=== PATIENT | male | born 1935 | race Caucasian/White ===

== ENCOUNTER 2018-04-29 12:22 | Emergency (ER) | payer MEDICARE, BC ==
[2018-04-29 13:18] LABS: ADD MAN DIFF? NO
[2018-04-29 13:23] LABS: BASOPHIL # 0.1 10^3/ul (0.0-0.1); BASOPHILS % 0.5 % (0.0-2.0); EOSINOPHILS # 0.3 10^3/ul (0.0-0.5); EOSINOPHILS % 2.4 % (0.0-7.0); HEMATOCRIT 41.9 % (42.0-52.0); HEMOGLOBIN 13.4 g/dl (14.0-18.0); LYMPHOCYTES # 1.7 10^3/ul (0.8-2.9); LYMPHOCYTES % 14.2 % (15.0-51.0); MEAN CORPUSCULAR HEMOGLOBIN 29.9 pg (29.0-33.0); MEAN CORPUSCULAR VOLUME 93.5 fl (82.0-101.0); MEAN PLATELET VOLUME 8.2 fl (7.4-10.4); MONOCYTE # 0.6 10^3/ul (0.3-0.9); MONOCYTES % 4.7 % (0.0-11.0); NEUTROPHIL # 9.2 10^3/ul (1.6-7.5); NEUTROPHILS % 77.7 % (39.0-77.0); PLATELET COUNT 248 10^3/UL (140-415); RED BLOOD COUNT 4.48 10^6/ul (4.70-6.10); RED CELL DISTRIBUTION WIDTH 14.1 % (11.5-14.5)
[2018-04-29 13:23] LABS: WHITE BLOOD COUNT 11.8 10^3/ul (4.8-10.8)
[2018-04-29] MEDS: ONDANSETRON 4 MG INJ IV (13:31)
[2018-04-29] MEDS: hydrALAzine 20 MG INJ IV (13:32)
[2018-04-29] MEDS: MECLIZINE 12.5 MG TAB PO (13:36)
[2018-04-29 13:40] LABS: ACETAMINOPHEN < 10.0 ug/ml (10.0-30.0); ALANINE AMINOTRANSFERASE 23 IU/L (13-69); ALBUMIN 3.8 g/dl (3.3-4.9); ALBUMIN/GLOBULIN RATIO 0.86; ALKALINE PHOSPHATASE 101 IU/L (42-121); ANION GAP 13 (8-16); ASPARTATE AMINO TRANSFERASE 22 IU/L (15-46); BILIRUBIN,INDIRECT 0.3 mg/dl (0-1.1); BILIRUBIN,TOTAL 0.3 mg/dl (0.2-1.3); BLOOD UREA NITROGEN 27 mg/dl (7-20); CALCIUM 10.1 mg/dl (8.4-10.2); CARBON DIOXIDE 31 mmol/L (21-31); CHLORIDE 104 mmol/L (97-110); CREATININE 0.91 mg/dl (0.61-1.24); GLUCOSE 172 mg/dl (70-220); POTASSIUM 3.7 mmol/L (3.5-5.1); SODIUM 144 mmol/L (135-144); TOTAL PROTEIN 8.2 g/dl (6.1-8.1)
[2018-04-29 13:42] LABS: INR 0.97; PARTIAL THROMBOPLASTIN TIME 30.9 Sec (23.0-35.0)
[2018-04-29] MEDS: LABETALOL HCL 20MG INJ IV (14:34)
[2018-04-29 15:21] LABS: SALICYLATE < 1.0 mg/dl (5.0-30.0)
== END 2018-04-29 18:26 | disposition home or self-care (01) ==
LOC: E/R 12:22
DX: I16.0 Hypertensive urgency (principal); D64.9 Anemia, unspecified; I10 Essential (primary) hypertension; Z85.46 Personal history of malignant neoplasm of prostate; Z87.891 Personal history of nicotine dependence
CPT/HCPCS: 36415; 70450; 80053; 80307; 85025; 85610; 85730; 93005; 96374; 96375; 99285-25

== ENCOUNTER 2018-11-17 22:09 | Inpatient (IN) | payer MEDICARE, BC ==
[2018-11-17] MEDS: IOHEXOL 100 ML (22:16)
[2018-11-17] MEDS: SOD CHLORIDE 0.9% 100 ML (22:16)
[2018-11-17 22:41] LABS: ADD MAN DIFF? NO
[2018-11-17 22:45] LABS: BASOPHIL # 0.1 10^3/ul (0.0-0.1); BASOPHILS % 0.7 % (0.0-2.0); EOSINOPHILS # 0.4 10^3/ul (0.0-0.5); EOSINOPHILS % 5.1 % (0.0-7.0); HEMATOCRIT 31.2 % (42.0-52.0); HEMOGLOBIN 9.6 g/dl (14.0-18.0); LYMPHOCYTES # 3.3 10^3/ul (0.8-2.9); LYMPHOCYTES % 43.5 % (15.0-51.0); MEAN CORPUSCULAR HEMOGLOBIN 29.9 pg (29.0-33.0); MEAN CORPUSCULAR HGB CONC 30.8 g/dl (32.0-37.0); MEAN CORPUSCULAR VOLUME 97.2 fl (82.0-101.0); MONOCYTE # 0.9 10^3/ul (0.3-0.9); MONOCYTES % 11.6 % (0.0-11.0); NEUTROPHIL # 2.9 10^3/ul (1.6-7.5); NEUTROPHILS % 38.7 % (39.0-77.0); PLATELET COUNT 198 10^3/UL (140-415); RED BLOOD COUNT 3.21 10^6/ul (4.70-6.10); RED CELL DISTRIBUTION WIDTH 14.2 % (11.5-14.5)
[2018-11-17 22:45] LABS: WHITE BLOOD COUNT 7.5 10^3/ul (4.8-10.8)
[2018-11-17 23:02] LABS: ALANINE AMINOTRANSFERASE 23 IU/L (13-69); ALBUMIN/GLOBULIN RATIO 0.93; ALKALINE PHOSPHATASE 87 IU/L (42-121); ANION GAP 7 (5-13); ASPARTATE AMINO TRANSFERASE 18 IU/L (15-46); BLOOD UREA NITROGEN 31 mg/dl (7-20); CALCIUM 8.2 mg/dl (8.4-10.2); CARBON DIOXIDE 26 mmol/L (21-31); CHLORIDE 108 mmol/L (97-110); CHOL/HDL RATIO 4.3 RATIO; CHOLESTEROL 101 mg/dl (100-200); CREATINE KINASE 127 IU/L (23-200); CREATININE 0.92 mg/dl (0.61-1.24); GLUCOSE 132 mg/dl (70-220); HDL CHOLESTEROL 23 mg/dl (31-75); LDL CHOLESTEROL,CALCULATED 58 mg/dl; POTASSIUM 3.4 mmol/L (3.5-5.1); SODIUM 141 mmol/L (135-144); TOTAL PROTEIN 6.2 g/dl (6.1-8.1); TRIGLYCERIDES 98 mg/dl (0-149)
[2018-11-17 23:03] LABS: ETHANOL < 10.0 mg/dl (0-0)
[2018-11-17 23:04] LABS: INR 1.09; PROTIME 14.2 Sec (11.9-14.9); PT RATIO 1.1
[2018-11-17 23:05] LABS: PARTIAL THROMBOPLASTIN TIME 32.1 Sec (23.0-35.0)
[2018-11-17 23:12] LABS: HEMOGLOBIN A1C 5.4 % (0-5.9)
[2018-11-17 23:13] LABS: CK INDEX 1.8; TROPONIN-I < 0.012 ng/ml (0.000-0.120)
[2018-11-17] MEDS: ASPIRIN 325 MG TAB PO (23:46)
[2018-11-18] MEDS: CLOPIDOGREL 75 MG TAB PO (00:48)
[2018-11-18] MEDS: hydrALAzine 20 MG INJ IV (06:34)
[2018-11-18] MEDS ORDERED: DOCUSATE SODIUM 100 MG CAP PO (13:00)
[2018-11-18] MEDS ORDERED: NACL 0.9% 3 ML SYG IV (13:00)
[2018-11-18] MEDS ORDERED: ONDANSETRON 4 MG TAB PO (13:00)
[2018-11-18] MEDS: SOD CHLORIDE 0.9% 1,000 ML IV (14:02)
[2018-11-18] MEDS: POTASSIUM CHLORIDE (SR) 10 MEQ TAB PO (14:03)
[2018-11-18] MEDS: SULFASALAZINE 500 MG TAB PO ×3 (14:03→20:25)
[2018-11-18] MEDS: ATORVASTATIN 10 MG TAB PO (20:24)
[2018-11-18] MEDS: METOPROLOL (XL) 25 MG TAB PO (20:25)
[2018-11-18] MEDS: DONEPEZIL 5 MG TAB PO (20:25)
[2018-11-18] MEDS: LORAZEPAM 1 MG TAB PO (20:25)
[2018-11-18] MEDS ORDERED: DONEPEZIL 5 MG TAB PO (21:00)
[2018-11-19] MEDS: LORAZEPAM 1 MG TAB PO (05:01)
[2018-11-19] MEDS: PANTOPRAZOLE (EC) 40 MG TAB PO (05:01)
[2018-11-19 07:50] LABS: ADD MAN DIFF? NO
[2018-11-19 07:52] LABS: BASOPHIL # 0.1 10^3/ul (0.0-0.1); BASOPHILS % 0.7 % (0.0-2.0); EOSINOPHILS # 0.3 10^3/ul (0.0-0.5); EOSINOPHILS % 3.2 % (0.0-7.0); HEMATOCRIT 35.9 % (42.0-52.0); HEMOGLOBIN 11.6 g/dl (14.0-18.0); LYMPHOCYTES # 2.7 10^3/ul (0.8-2.9); LYMPHOCYTES % 34.2 % (15.0-51.0); MEAN CORPUSCULAR HEMOGLOBIN 30.7 pg (29.0-33.0); MEAN CORPUSCULAR HGB CONC 32.3 g/dl (32.0-37.0); MEAN PLATELET VOLUME 8.6 fl (7.4-10.4); MONOCYTE # 0.7 10^3/ul (0.3-0.9); MONOCYTES % 8.6 % (0.0-11.0); NEUTROPHIL # 4.2 10^3/ul (1.6-7.5); NEUTROPHILS % 53.1 % (39.0-77.0); PLATELET COUNT 263 10^3/UL (140-415); RED BLOOD COUNT 3.78 10^6/ul (4.70-6.10); RED CELL DISTRIBUTION WIDTH 14.5 % (11.5-14.5)
[2018-11-19 08:06] LABS: HEMOGLOBIN A1C 5.4 % (0-5.9)
[2018-11-19 08:10] LABS: IRON 92 ug/dl (35-150)
[2018-11-19 08:16] LABS: ANION GAP 11 (5-13); BLOOD UREA NITROGEN 24 mg/dl (7-20); CALCIUM 9.6 mg/dl (8.4-10.2); CARBON DIOXIDE 23 mmol/L (21-31); CHLORIDE 109 mmol/L (97-110); CREATININE 0.89 mg/dl (0.61-1.24); GLUCOSE 119 mg/dl (70-220); MAGNESIUM 2.2 mg/dl (1.7-2.5); PHOSPHORUS 3.3 mg/dl (2.5-4.9); POTASSIUM 3.7 mmol/L (3.5-5.1); SODIUM 143 mmol/L (135-144)
[2018-11-19] MEDS: SULFASALAZINE 500 MG TAB PO ×4 (08:19→20:39)
[2018-11-19] MEDS: ASPIRIN (EC) 325 MG TAB PO (08:19)
[2018-11-19] MEDS: DONEPEZIL 5 MG TAB PO ×2 (08:19→20:38)
[2018-11-19] MEDS: OXYBUTYNIN (XL) 5 MG TAB PO (08:19)
[2018-11-19 08:20] LABS: % IRON SATURATION 37 % SAT (22-52); TOTAL IRON BINDING CAPACITY 246 ug/dl (241-421)
[2018-11-19] MEDS: METOPROLOL (XL) 25 MG TAB PO ×2 (08:20→20:39)
[2018-11-19 08:59] LABS: ADD UMIC YES; UR ASCORBIC ACID NEGATIVE (NEGATIVE); UR BILIRUBIN (Dip) NEGATIVE (NEGATIVE); UR BLOOD (Dip) 2+ mg/dL (NEGATIVE); UR CLARITY CLEAR (CLEAR); UR COLOR YELLOW (YELLOW); UR GLUCOSE (Dip) NEGATIVE (NEGATIVE); UR KETONES (Dip) TRACE mg/dL (NEGATIVE); UR LEUKOCYTE ESTERASE (Dip) NEGATIVE Leu/ul (NEGATIVE); UR NITRITE (Dip) NEGATIVE (NEGATIVE); UR RBC 16 /HPF (0-5); UR SPECIFIC GRAVITY (Dip) 1.021 (1.003-1.030); UR TOTAL PROTEIN (Dip) NEGATIVE (NEGATIVE); UR UROBILINOGEN (Dip) NEGATIVE (NEGATIVE); UR WBC 1 /HPF (0-5)
[2018-11-19 09:00] LABS: ERYTHROCYTE SEDIMENTATION RATE 52 mm/Hr (0-20)
[2018-11-19] MEDS: SOD CHLORIDE 0.9% 1,000 ML IV (09:00)
[2018-11-19 09:42] LABS: AMPHETAMINE/METHAMPHETAMINE Negative (NEGATIVE); BARBITURATES Negative (NEGATIVE); BENZODIAZEPINES Negative (NEGATIVE); CANNABINOIDS Negative (NEGATIVE); COCAINE Negative (NEGATIVE); OPIATES Negative (NEGATIVE)
[2018-11-19] MEDS: ACETAMINOPHEN 325 MG TAB PO (10:49)
[2018-11-19] MEDS: NIFEdipine (XL) 30 MG TAB PO ×2 (10:49→20:38)
[2018-11-19] MEDS ORDERED: NIFEdipine (XL) 30 MG TAB PO (11:00)
[2018-11-19 13:28] LABS: PROSTATE SPECIFIC ANTIGEN 0.5 ng/ml (0.0-4.0)
[2018-11-19 13:30] LABS: FERRITIN 48.8 ng/ml (11.1-264.0)
[2018-11-19] MEDS: CLOPIDOGREL 75 MG TAB PO (18:14)
[2018-11-19] MEDS: ATORVASTATIN 10 MG TAB PO (20:38)
[2018-11-20] MEDS: PANTOPRAZOLE (EC) 40 MG TAB PO (06:12)
[2018-11-20 08:21] LABS: ADD MAN DIFF? NO
[2018-11-20 08:26] LABS: WHITE BLOOD COUNT 7.5 10^3/ul (4.8-10.8)
[2018-11-20 08:26] LABS: BASOPHIL # 0.1 10^3/ul (0.0-0.1); BASOPHILS % 0.8 % (0.0-2.0); EOSINOPHILS # 0.3 10^3/ul (0.0-0.5); EOSINOPHILS % 3.3 % (0.0-7.0); HEMATOCRIT 34.8 % (42.0-52.0); LYMPHOCYTES # 3.1 10^3/ul (0.8-2.9); LYMPHOCYTES % 41.6 % (15.0-51.0); MEAN CORPUSCULAR HEMOGLOBIN 30.1 pg (29.0-33.0); MEAN CORPUSCULAR HGB CONC 31.6 g/dl (32.0-37.0); MEAN CORPUSCULAR VOLUME 95.1 fl (82.0-101.0); MEAN PLATELET VOLUME 8.6 fl (7.4-10.4); MONOCYTE # 0.7 10^3/ul (0.3-0.9); MONOCYTES % 9.1 % (0.0-11.0); NEUTROPHIL # 3.4 10^3/ul (1.6-7.5); NEUTROPHILS % 44.9 % (39.0-77.0); PLATELET COUNT 249 10^3/UL (140-415); RED BLOOD COUNT 3.66 10^6/ul (4.70-6.10); RED CELL DISTRIBUTION WIDTH 14.2 % (11.5-14.5)
[2018-11-20] MEDS: SULFASALAZINE 500 MG TAB PO ×4 (08:29→21:08)
[2018-11-20] MEDS: OXYBUTYNIN (XL) 5 MG TAB PO (08:30)
[2018-11-20] MEDS: ASPIRIN (EC) 325 MG TAB PO (08:30)
[2018-11-20] MEDS: DONEPEZIL 5 MG TAB PO ×2 (08:31→21:07)
[2018-11-20] MEDS: METOPROLOL (XL) 25 MG TAB PO ×2 (08:32→21:00)
[2018-11-20] MEDS: NIFEdipine (XL) 30 MG TAB PO ×2 (08:32→21:11)
[2018-11-20] MEDS: CLOPIDOGREL 75 MG TAB PO (08:35)
[2018-11-20 08:58] LABS: ANION GAP 8 (5-13); BLOOD UREA NITROGEN 26 mg/dl (7-20); CALCIUM 9.3 mg/dl (8.4-10.2); CARBON DIOXIDE 25 mmol/L (21-31); CHLORIDE 109 mmol/L (97-110); CREATININE 0.92 mg/dl (0.61-1.24); GLUCOSE 118 mg/dl (70-220); MAGNESIUM 2.2 mg/dl (1.7-2.5); PHOSPHORUS 3.3 mg/dl (2.5-4.9); POTASSIUM 3.7 mmol/L (3.5-5.1); SODIUM 142 mmol/L (135-144)
[2018-11-20 08:59] LABS: CHOLESTEROL 132 mg/dl (100-200)
[2018-11-20 08:59] LABS: CHOL/HDL RATIO 4.8 RATIO; HDL CHOLESTEROL 27 mg/dl (31-75); LDL CHOLESTEROL,CALCULATED 77 mg/dl; TRIGLYCERIDES 141 mg/dl (0-149)
[2018-11-20] MEDS: ENOXAPARIN 40 MG/0.4 ML SYG SC (10:00)
[2018-11-20] MEDS: ATORVASTATIN 10 MG TAB PO (21:07)
[2018-11-20 22:18] LABS: RAPID PLASMA REAGIN NONREACTIVE (NR)
[2018-11-21] MEDS: PANTOPRAZOLE (EC) 40 MG TAB PO (05:24)
[2018-11-21] MEDS: SULFASALAZINE 500 MG TAB PO ×4 (09:23→20:29)
[2018-11-21] MEDS: DONEPEZIL 5 MG TAB PO ×2 (09:24→20:27)
[2018-11-21] MEDS: NIFEdipine (XL) 30 MG TAB PO ×2 (09:24→20:42)
[2018-11-21] MEDS: ASPIRIN (EC) 325 MG TAB PO (09:24)
[2018-11-21] MEDS: CLOPIDOGREL 75 MG TAB PO (09:24)
[2018-11-21] MEDS: METOPROLOL (XL) 25 MG TAB PO ×2 (09:24→20:42)
[2018-11-21] MEDS: OXYBUTYNIN (XL) 5 MG TAB PO (09:25)
[2018-11-21] MEDS: ENOXAPARIN 40 MG/0.4 ML SYG SC (09:26)
[2018-11-21] MEDS: ATORVASTATIN 10 MG TAB PO (20:30)
== END 2018-11-21 22:05 | DRG 65 ==
LOC: E/R 22:09 → MS3 23:23 → TEL 11-18 19:15
DX: I63.9 Cerebral infarction, unspecified (principal); G45.9 Transient cerebral ischemic attack, unspecified; G81.91 Hemiplegia, unspecified affecting right dominant side; C92.01 Acute myeloblastic leukemia, in remission; K50.90 Crohn's disease, unspecified, without complications; E78.5 Hyperlipidemia, unspecified; F02.80 Dementia in other diseases classified elsewhere, unspecified severity, without behavioral disturbance, psychotic disturbance, mood disturbance, and anxiety; I10 Essential (primary) hypertension; R27.8 Other lack of coordination; Z85.46 Personal history of malignant neoplasm of prostate; Z87.891 Personal history of nicotine dependence
CPT/HCPCS: 36415; 70450; 70496; 70498; 70544; 70551; 71045; 74230; 80048; 80053; 80061; 80307; 81001; 82550; 82553; 82607; 82728; 83036; 83540; 83735; 84100; 84153; 84154; 84443; 84484; 85025; 85610; 85651; 85730; 86592; 92610; 92611; 93005; 93306; 93922; 97116; 97162; 97530; 99217; 99285-25

== ENCOUNTER 2018-11-21 22:13 | Inpatient (IN) | payer MEDICARE, BC ==
[2018-11-21] MEDS ORDERED: MAGNESIUM HYDROXIDE 30ML CUP PO (23:30)
[2018-11-21] MEDS ORDERED: BISACODYL 10 MG SUPP PR (23:30)
[2018-11-21] MEDS ORDERED: ONDANSETRON 4 MG TAB PO (23:45)
[2018-11-21] MEDS ORDERED: DOCUSATE SODIUM 100 MG CAP PO (23:45)
[2018-11-22] MEDS: PANTOPRAZOLE (EC) 40 MG TAB PO (05:39)
[2018-11-22 08:15] LABS: ADD MAN DIFF? NO
[2018-11-22 08:25] LABS: BASOPHIL # 0.1 10^3/ul (0.0-0.1); BASOPHILS % 1.1 % (0.0-2.0); EOSINOPHILS # 0.3 10^3/ul (0.0-0.5); EOSINOPHILS % 4.5 % (0.0-7.0); HEMATOCRIT 33.7 % (42.0-52.0); HEMOGLOBIN 10.6 g/dl (14.0-18.0); LYMPHOCYTES # 2.2 10^3/ul (0.8-2.9); LYMPHOCYTES % 40.1 % (15.0-51.0); MEAN CORPUSCULAR HEMOGLOBIN 29.8 pg (29.0-33.0); MEAN CORPUSCULAR HGB CONC 31.5 g/dl (32.0-37.0); MEAN CORPUSCULAR VOLUME 94.7 fl (82.0-101.0); MEAN PLATELET VOLUME 8.8 fl (7.4-10.4); MONOCYTE # 0.6 10^3/ul (0.3-0.9); MONOCYTES % 11.1 % (0.0-11.0); NEUTROPHIL # 2.4 10^3/ul (1.6-7.5); NEUTROPHILS % 42.8 % (39.0-77.0); PLATELET COUNT 241 10^3/UL (140-415); RED BLOOD COUNT 3.56 10^6/ul (4.70-6.10); RED CELL DISTRIBUTION WIDTH 13.9 % (11.5-14.5)
[2018-11-22 08:25] LABS: WHITE BLOOD COUNT 5.5 10^3/ul (4.8-10.8)
[2018-11-22 08:58] LABS: ALANINE AMINOTRANSFERASE 32 IU/L (13-69); ALBUMIN 3.6 g/dl (3.3-4.9); ALBUMIN/GLOBULIN RATIO 0.97; ALKALINE PHOSPHATASE 106 IU/L (42-121); ANION GAP 8 (5-13); ASPARTATE AMINO TRANSFERASE 28 IU/L (15-46); BILIRUBIN,TOTAL 0.3 mg/dl (0.2-1.3); BLOOD UREA NITROGEN 22 mg/dl (7-20); CALCIUM 9.2 mg/dl (8.4-10.2); CARBON DIOXIDE 26 mmol/L (21-31); CHLORIDE 108 mmol/L (97-110); CREATININE 1.04 mg/dl (0.61-1.24); GLUCOSE 117 mg/dl (70-220); POTASSIUM 3.9 mmol/L (3.5-5.1); SODIUM 142 mmol/L (135-144); TOTAL PROTEIN 7.3 g/dl (6.1-8.1)
[2018-11-22] MEDS: METOPROLOL (XL) 25 MG TAB PO ×2 (09:34→20:34)
[2018-11-22] MEDS: CLOPIDOGREL 75 MG TAB PO (09:34)
[2018-11-22] MEDS: OXYBUTYNIN (XL) 5 MG TAB PO (09:35)
[2018-11-22] MEDS: ASPIRIN (EC) 325 MG TAB PO (09:35)
[2018-11-22] MEDS: NIFEdipine (XL) 30 MG TAB PO ×2 (09:35→20:33)
[2018-11-22] MEDS: SULFADIAZINE 500 MG TAB PO ×4 (09:36→20:34)
[2018-11-22] MEDS: DONEPEZIL 5 MG TAB PO ×2 (09:36→20:34)
[2018-11-22] MEDS: ENOXAPARIN 40 MG/0.4 ML SYG SC (09:43)
[2018-11-22] MEDS: LACTULOSE 30ML CUP PO (16:49)
[2018-11-22] MEDS: ATORVASTATIN 10 MG TAB PO (20:34)
[2018-11-23] MEDS: PANTOPRAZOLE (EC) 40 MG TAB PO (06:30)
[2018-11-23] MEDS: SULFADIAZINE 500 MG TAB PO ×4 (08:39→21:05)
[2018-11-23] MEDS: CLOPIDOGREL 75 MG TAB PO (08:40)
[2018-11-23] MEDS: OXYBUTYNIN (XL) 5 MG TAB PO (08:40)
[2018-11-23] MEDS: ASPIRIN (EC) 325 MG TAB PO (08:40)
[2018-11-23] MEDS: METOPROLOL (XL) 25 MG TAB PO ×2 (08:44→21:12)
[2018-11-23] MEDS: DONEPEZIL 5 MG TAB PO ×2 (08:45→21:08)
[2018-11-23] MEDS: NIFEdipine (XL) 30 MG TAB PO ×2 (08:45→21:11)
[2018-11-23] MEDS: ENOXAPARIN 40 MG/0.4 ML SYG SC (08:51)
[2018-11-23 18:05] LABS: ADD UMIC NO; UR ASCORBIC ACID NEGATIVE (NEGATIVE); UR BILIRUBIN (Dip) NEGATIVE (NEGATIVE); UR BLOOD (Dip) NEGATIVE (NEGATIVE); UR CLARITY CLEAR (CLEAR); UR COLOR YELLOW (YELLOW); UR GLUCOSE (Dip) NEGATIVE (NEGATIVE); UR KETONES (Dip) NEGATIVE (NEGATIVE); UR LEUKOCYTE ESTERASE (Dip) NEGATIVE Leu/ul (NEGATIVE); UR NITRITE (Dip) NEGATIVE (NEGATIVE); UR SPECIFIC GRAVITY (Dip) 1.019 (1.003-1.030); UR TOTAL PROTEIN (Dip) NEGATIVE (NEGATIVE); UR UROBILINOGEN (Dip) NEGATIVE (NEGATIVE)
[2018-11-23] MEDS: ATORVASTATIN 10 MG TAB PO (21:05)
[2018-11-24] MEDS: PANTOPRAZOLE (EC) 40 MG TAB PO (06:32)
[2018-11-24] MEDS: SULFADIAZINE 500 MG TAB PO ×4 (09:00→20:28)
[2018-11-24] MEDS: METOPROLOL (XL) 25 MG TAB PO ×2 (09:00→20:28)
[2018-11-24] MEDS: CLOPIDOGREL 75 MG TAB PO (11:19)
[2018-11-24] MEDS: ASPIRIN (EC) 325 MG TAB PO (11:20)
[2018-11-24] MEDS: DONEPEZIL 5 MG TAB PO ×2 (11:20→20:28)
[2018-11-24] MEDS: OXYBUTYNIN (XL) 5 MG TAB PO (11:21)
[2018-11-24] MEDS: NIFEdipine (XL) 30 MG TAB PO ×2 (11:23→20:27)
[2018-11-24] MEDS: ENOXAPARIN 40 MG/0.4 ML SYG SC (13:15)
[2018-11-24] MEDS: LORAZEPAM 0.5 MG TAB PO (20:26)
[2018-11-24] MEDS: ATORVASTATIN 10 MG TAB PO (20:26)
[2018-11-25] MEDS: PANTOPRAZOLE (EC) 40 MG TAB PO (06:29)
[2018-11-25] MEDS: NIFEdipine (XL) 30 MG TAB PO (08:38)
[2018-11-25] MEDS: SULFADIAZINE 500 MG TAB PO ×4 (08:38→21:45)
[2018-11-25] MEDS: ASPIRIN (EC) 325 MG TAB PO (08:38)
[2018-11-25] MEDS: ENOXAPARIN 40 MG/0.4 ML SYG SC (08:38)
[2018-11-25] MEDS: OXYBUTYNIN (XL) 5 MG TAB PO (08:38)
[2018-11-25] MEDS: CLOPIDOGREL 75 MG TAB PO (08:39)
[2018-11-25] MEDS: METOPROLOL (XL) 25 MG TAB PO (08:39)
[2018-11-25] MEDS: DONEPEZIL 5 MG TAB PO ×2 (08:39→21:44)
[2018-11-25] MEDS: ATORVASTATIN 10 MG TAB PO (21:44)
[2018-11-25] MEDS: LORAZEPAM 0.5 MG TAB PO (21:44)
[2018-11-25] MEDS: ACETAMINOPHEN 325 MG TAB PO (22:35)
[2018-11-26] MEDS: PANTOPRAZOLE (EC) 40 MG TAB PO (06:47)
[2018-11-26] MEDS: OXYBUTYNIN (XL) 5 MG TAB PO (08:17)
[2018-11-26] MEDS: DONEPEZIL 5 MG TAB PO ×2 (08:18→22:14)
[2018-11-26] MEDS: CLOPIDOGREL 75 MG TAB PO (08:18)
[2018-11-26] MEDS: SULFADIAZINE 500 MG TAB PO ×4 (08:18→22:13)
[2018-11-26] MEDS: ASPIRIN (EC) 325 MG TAB PO (08:18)
[2018-11-26 08:24] LABS: ADD MAN DIFF? NO
[2018-11-26 08:26] LABS: BASOPHIL # 0.1 10^3/ul (0.0-0.1); BASOPHILS % 1.2 % (0.0-2.0); EOSINOPHILS # 0.5 10^3/ul (0.0-0.5); EOSINOPHILS % 6.6 % (0.0-7.0); HEMATOCRIT 34.3 % (42.0-52.0); HEMOGLOBIN 10.9 g/dl (14.0-18.0); LYMPHOCYTES # 2.6 10^3/ul (0.8-2.9); LYMPHOCYTES % 37.2 % (15.0-51.0); MEAN CORPUSCULAR HEMOGLOBIN 29.9 pg (29.0-33.0); MEAN CORPUSCULAR HGB CONC 31.8 g/dl (32.0-37.0); MEAN CORPUSCULAR VOLUME 94.2 fl (82.0-101.0); MEAN PLATELET VOLUME 8.9 fl (7.4-10.4); MONOCYTE # 0.7 10^3/ul (0.3-0.9); MONOCYTES % 9.6 % (0.0-11.0); NEUTROPHIL # 3.1 10^3/ul (1.6-7.5); PLATELET COUNT 257 10^3/UL (140-415); RED BLOOD COUNT 3.64 10^6/ul (4.70-6.10); RED CELL DISTRIBUTION WIDTH 14.2 % (11.5-14.5)
[2018-11-26 08:26] LABS: WHITE BLOOD COUNT 6.9 10^3/ul (4.8-10.8)
[2018-11-26] MEDS: LOSARTAN 25 MG TAB PO (08:29)
[2018-11-26] MEDS: NIFEdipine (XL) 30 MG TAB PO ×2 (08:35→22:14)
[2018-11-26] MEDS: METOPROLOL (XL) 25 MG TAB PO ×2 (08:36→21:00)
[2018-11-26 08:57] LABS: ANION GAP 9 (5-13); BLOOD UREA NITROGEN 23 mg/dl (7-20); CALCIUM 9.2 mg/dl (8.4-10.2); CARBON DIOXIDE 26 mmol/L (21-31); CHLORIDE 107 mmol/L (97-110); CREATININE 0.99 mg/dl (0.61-1.24); GLUCOSE 116 mg/dl (70-220); MAGNESIUM 2.2 mg/dl (1.7-2.5); PHOSPHORUS 3.5 mg/dl (2.5-4.9); POTASSIUM 3.9 mmol/L (3.5-5.1); SODIUM 142 mmol/L (135-144)
[2018-11-26] MEDS ORDERED: METOPROLOL (XL) 50 MG TAB PO (09:00)
[2018-11-26] MEDS ORDERED: NIFEdipine (XL) 60 MG TAB PO (09:00)
[2018-11-26] MEDS: ATORVASTATIN 10 MG TAB PO (22:13)
[2018-11-27 06:15] LABS: ADD MAN DIFF? NO
[2018-11-27 06:25] LABS: WHITE BLOOD COUNT 7.3 10^3/ul (4.8-10.8)
[2018-11-27 06:25] LABS: BASOPHIL # 0.1 10^3/ul (0.0-0.1); BASOPHILS % 0.8 % (0.0-2.0); EOSINOPHILS # 0.5 10^3/ul (0.0-0.5); EOSINOPHILS % 6.7 % (0.0-7.0); HEMATOCRIT 35.7 % (42.0-52.0); HEMOGLOBIN 11.3 g/dl (14.0-18.0); LYMPHOCYTES # 2.9 10^3/ul (0.8-2.9); LYMPHOCYTES % 39.8 % (15.0-51.0); MEAN CORPUSCULAR HEMOGLOBIN 30.1 pg (29.0-33.0); MEAN CORPUSCULAR HGB CONC 31.7 g/dl (32.0-37.0); MEAN CORPUSCULAR VOLUME 95.2 fl (82.0-101.0); MEAN PLATELET VOLUME 8.6 fl (7.4-10.4); MONOCYTE # 0.8 10^3/ul (0.3-0.9); MONOCYTES % 11.2 % (0.0-11.0); NEUTROPHILS % 41.1 % (39.0-77.0); PLATELET COUNT 267 10^3/UL (140-415); RED BLOOD COUNT 3.75 10^6/ul (4.70-6.10)
[2018-11-27] MEDS: PANTOPRAZOLE (EC) 40 MG TAB PO (06:34)
[2018-11-27 06:42] LABS: ANION GAP 8 (5-13); BLOOD UREA NITROGEN 23 mg/dl (7-20); CALCIUM 9.4 mg/dl (8.4-10.2); CARBON DIOXIDE 30 mmol/L (21-31); CHLORIDE 104 mmol/L (97-110); GLUCOSE 109 mg/dl (70-220); MAGNESIUM 2.3 mg/dl (1.7-2.5); PHOSPHORUS 3.9 mg/dl (2.5-4.9); SODIUM 142 mmol/L (135-144)
[2018-11-27] MEDS: CLOPIDOGREL 75 MG TAB PO (09:06)
[2018-11-27] MEDS: ASPIRIN (EC) 325 MG TAB PO (09:07)
[2018-11-27] MEDS: OXYBUTYNIN (XL) 5 MG TAB PO (09:07)
[2018-11-27] MEDS: DONEPEZIL 5 MG TAB PO ×2 (09:08→21:02)
[2018-11-27] MEDS: METOPROLOL (XL) 25 MG TAB PO ×2 (09:08→21:04)
[2018-11-27] MEDS: NIFEdipine (XL) 30 MG TAB PO ×2 (09:08→21:03)
[2018-11-27] MEDS: LOSARTAN 50 MG TAB PO (09:09)
[2018-11-27] MEDS: SULFADIAZINE 500 MG TAB PO ×4 (09:09→21:03)
[2018-11-27] MEDS: ATORVASTATIN 10 MG TAB PO (21:03)
[2018-11-28] MEDS: PANTOPRAZOLE (EC) 40 MG TAB PO (06:42)
[2018-11-28] MEDS: OXYBUTYNIN (XL) 5 MG TAB PO (09:11)
[2018-11-28] MEDS: LOSARTAN 50 MG TAB PO (09:17)
[2018-11-28] MEDS: ASPIRIN (EC) 325 MG TAB PO (09:17)
[2018-11-28] MEDS: SULFADIAZINE 500 MG TAB PO (09:17)
[2018-11-28] MEDS: NIFEdipine (XL) 30 MG TAB PO (09:17)
[2018-11-28] MEDS: CLOPIDOGREL 75 MG TAB PO (09:18)
[2018-11-28] MEDS: DONEPEZIL 5 MG TAB PO (09:18)
[2018-11-28] MEDS: METOPROLOL (XL) 25 MG TAB PO (09:20)
== END 2018-11-28 12:00 | disposition home health service (06) | DRG 57 ==
LOC: VRC 22:13
PROC: F07Z5ZZ Bed Mobility Treatment (ICD-10-PCS; principal; 2018-11-21)
PROC: F08Z2ZZ Grooming/Personal Hygiene Treatment (ICD-10-PCS; 2018-11-21)
PROC: F06Z6ZZ Communicative/Cognitive Integration Skills Treatment (ICD-10-PCS; 2018-11-21)
DX: I69.351 Hemiplegia and hemiparesis following cerebral infarction affecting right dominant side (principal); I69.322 Dysarthria following cerebral infarction; I69.391 Dysphagia following cerebral infarction; R13.10 Dysphagia, unspecified; I10 Essential (primary) hypertension; D64.9 Anemia, unspecified; K52.9 Noninfective gastroenteritis and colitis, unspecified; Z91.81 History of falling; Z79.82 Long term (current) use of aspirin; C61 Malignant neoplasm of prostate; M19.90 Unspecified osteoarthritis, unspecified site; R79.89 Other specified abnormal findings of blood chemistry
CPT/HCPCS: 80048; 80053; 81003; 83735; 84100; 85025; 86320; 87081; 87086; 92507; 92523; 92526; 92610; 97110; 97112; 97116; 97150; 97163; 97530; 97535